=== PATIENT | female | born 1980 | race Caucasian/White ===

== ENCOUNTER 2022-08-08 08:00 | Day surgery (SDC) | payer OTHER ==
[~2022-08-08] VITALS: Ht 165.1 cm; Wt 77.3 kg
[~2022-08-08 08:00] MED LIST: GUMMI BEAR MUL1 EACH PO; IBUPROFEN200 MG PO; IBUPROFEN600 MG PO; PERCOCET 5-3251 EACH PO; REGLAN10 MG PO; TYLENOL325 MG PO
[2022-08-08] MEDS ORDERED: MULTI VITAMIN1 EACH PO (08:20)
[2022-08-08] MEDS ORDERED: DICLOFENAC SODI75 MG PO (11:01)
[2022-08-08] MEDS ORDERED: HYDROCODON-ACE1 EA11 PO (11:01)
--- NOTE | 2022-08-08 11:06 | NUR ---
08/08/22 1105 Shayla Vicente 1101- PT ARRIVES TO PACU REACTIVE TO VOICE. PT REPORTS NO PAIN OR NAUSEA. DOES NOT OPEN HER EYES. PT FALLS TO SLEEP WHEN NOT BEING TALKED TO. RESP EVEN AND UNLABORED. OXYGEN SAT MID TO HIGH 90'S ON RA. ICE PACK APPLIED TO PT'S RIGHT FOREARM/ WRIST WITH DRESSING IN BETWEEN SKIN AND ICE PACK.
--- NOTE | 2022-08-08 11:46 | NUR ---
PT BACK TO DS FROM PACU WAKE, RESTING WITH EYES CLOSED. ANSWERS QUESTIONS AND RESPONDS TO VERAL STIMULI. SHE DENIES PAIN AND NAUSEA, DECLINES ANYTHING TO EAT OR DRINK. AT BEDSIDE. WARM BLANKET GIVEN TO PT. CALL LIGHT WITHIN REACH. PTS RT HAND NUMB FROM AXILLARY BLOCK. SHE IS ABLE MOVE INDEX FINGER ON RT HAND SHE REPORTS EVERYTHING FEELS NUMB. CAP REFILL LESS THAN 1 SECOND.
--- NOTE | 2022-08-08 13:05 | NUR ---
1215 PT AMBULATED TO BATHROOM WITH MINIMAL ASSIST. SHE WAS ABLE TO VOID. SHE REPORTS READINESS TO GO HOME, HELPED HER GET DRESSED SHE DENIES PAIN AND NAUSEA.
--- NOTE | 2022-08-08 13:07 | NUR ---
1230 DISCHARGE INSTRUCTIONS GIVEN TO PT AND , BOTH VOICED UNDERSTANDING. RT ARM STILL NUMB FROM BLOCK PT NOT ABLE TO MOVE FINGERS ON RT HAND DUE TO BLOCK. CAP REFILL LESS THAN 1 SECOND. ICE PLACED INSIDE SLING ON RT WRIST.
--- NOTE | 2022-08-11 07:06 | OR ---
[facility] [address] [facility] [place] [facility] [place], [place] [address] Signed DATE OF OPERATION: 08/08/2022 SURGEON: Dariela Hidalgo MD PREOPERATIVE DIAGNOSIS: Distal radius fracture, right, displaced. POSTOPERATIVE DIAGNOSIS: Distal radius fracture, right, displaced. PROCEDURE PERFORMED: Open reduction and internal fixation, right distal radius. TANDEM MILL STICKER: None. ANESTHESIA: General. BLOOD LOSS: None. TOURNIQUET TIME: 37 minutes. IMPLANTS: Jon distal radius volar plate, small with five screws. BRIEF HISTORY: Mohan is a 42-year-old female, who suffered a fall while snowboarding and fracturing her right distal radius. She was seen in the clinic and radiograph showed the fracture to be displaced and dorsally angulated. Risks and benefits of operative treatment were discussed with her and she elected to proceed. PROCEDURE IN DETAIL: Once consent was obtained she was taken to the operating room. After adequate anesthesia she was placed on operating room table. Hand table was brought in and the arm was prepped and draped in a standard sterile fashion up to a proximal arm well-padded tourniquet. The arm was exsanguinated using Esmarch bandage. Tourniquet inflated to 200 mmHg. Standard volar approach was taken through skin and subcutaneous Electronically Signed By: DARIELA HIDALGO MD 08/11/22 0706 PATIENT NAME: MOHAN ENGLE OPERATIVE REPORT DATE OF : 76 REPORT #: [id number] PHYSICIAN: DARIELA HIDALGO MD PCP: LAUREN MENON MD REPORT IS CONFIDENTIAL AND NOT TO BE RELEASED WITHOUT AUTHORIZATION [facility] [address] [place], [place] [address] Signed tissue. The FCR was identified, retracted and protected throughout the case. The floor of the FCR sheath was then incised longitudinally and the pronator muscle was identified and split longitudinally and elevated in both directions. This allowed visualization of the fracture. The fracture was reduced using a shoehorning technique and volar and ulnar translation. Once the bone was well reduced, it was checked using image intensifier and found to be good. We then fashioned the small volar plate to the distal radius and held it with a single screw in the slotted position. We then took radiographs and adjusted the plate position. The screw was then tightened. Three screws were placed in the distal end of the plate. Two nonlocking one locking screw were used. The second proximal screw was then placed. Final radiograph showed the screw lengths and plate placement to be in excellent position. The wound was then copiously irrigated with normal saline. The pronator was repaired back into position with 2-0 Monocryl. The floor of the FCR sheath was repaired with 2-0 Monocryl and subcutaneous tissue with 2-0 Monocryl. The skin was closed with 3-0 Monocryl and Steri-Strips were applied with LiquiBand. She tolerated the procedure well. All sponge, needle, and instrument counts were correct. She was placed in a volar splint over and Allevyn dressing. Dariela Hidalgo MD BA/MODL /[id number] Copies: ~ Electronically Signed By: DARIELA HIDALGO MD 08/11/22 0706 PATIENT NAME: MOHAN ENGLE OPERATIVE REPORT DATE OF : 76 REPORT #: [id number] PHYSICIAN: DARIELA HIDALGO MD PCP: LAUREN MENON MD REPORT IS CONFIDENTIAL AND NOT TO BE RELEASED WITHOUT AUTHORIZATION
== END 2022-08-08 12:45 | disposition home or self-care (01) ==
LOC: DS 08:00
PROVIDERS: ATTEND Specialist
PROC: 0PSH04Z Reposition Right Radius with Internal Fixation Device, Open Approach (ICD-10-PCS; principal; 2022-08-08 10:15)
DX: S52.571A Other intraarticular fracture of lower end of right radius, initial encounter for closed fracture (principal)
CPT/HCPCS: 01830; 64417; 73100; 76942; 84703; C1713; J0690; J1100; J2001; J2250; J2405; J2704; J2795; J3010; J7121